=== PATIENT | female | born 1960 | race Caucasian/White ===

== ENCOUNTER 2016-08-08 10:55 | Emergency (ER) | payer BC ==
[~2016-08-08] VITALS: Ht 167.6 cm; Wt 108.9 kg
[2016-08-08 10:55] VITALS: BP 122/82; PULSE 88; RESP 16; TEMP 97.2; O2SAT 99
--- NOTE | 2016-08-08 10:55 | NUR ---
BROUGHT IN BY BRENT HUANG AND PLACED IN BED #2, TRIAGED. REPORT GIVEN TO KIANA
--- NOTE | 2016-08-08 11:00 | NUR ---
ER at bedside examining patient.
--- NOTE | 2016-08-08 11:05 | NUR ---
Patient BIB BLS from home for slip and fall on the cement, 6/10 r wrist pain and l hip pain. Pt noted to be able to flex and extend R wrist without difficulty. will continue to monitor
--- NOTE | 2016-08-08 11:26 | NUR ---
pt to radiology via wheelchair
--- NOTE | 2016-08-08 12:00 | NUR ---
Pt ambulated without assist by EMT
--- NOTE | 2016-08-08 12:26 | NUR ---
dr barr speaking to patient regarding results
[2016-08-08 12:35] VITALS: BP 131/78; PULSE 88; RESP 16; TEMP 98.1; O2SAT 99
--- NOTE | 2016-08-08 12:35 | NUR ---
Patient given written and verbal discharge instructions and verbalizes understanding. ER MD DR. LOUIS discussed with patient the results and treatment provided. Patient in stable condition. ID arm band removed. Rx of CIPROFLOXACIN HCL given. Patient educated on pain management and to follow up with PMD. Pain Scale 0/10 Opportunity for questions provided and answered.
== END 2016-08-08 12:35 | disposition home or self-care (01) ==
LOC: SED 10:55
DX: S09.90XA Unspecified injury of head, initial encounter (principal); M25.531 Pain in right wrist; M79.652 Pain in left thigh; Z88.1 Allergy status to other antibiotic agents; Z88.5 Allergy status to narcotic agent; W01.198A Fall on same level from slipping, tripping and stumbling with subsequent striking against other object, initial encounter; Y93.89 Activity, other specified; Y99.8 Other external cause status; Y92.89 Other specified places as the place of occurrence of the external cause
CPT/HCPCS: 99284